=== PATIENT | female | born 1990 | race Caucasian/White ===

== ENCOUNTER 2019-05-02 15:32 | Inpatient (IN) ==
[2019-05-02] MEDS ORDERED: OXYTOCIN 30 UNITS/500 ML BAG IV PRN ×3 (16:58→22:51)
[2019-05-02 17:22] LABS: Hemoglobin 13.3 g/dL (12.0-16.0); Mean Corpuscular Volume 94.2 fL (80-100); Mean Platelet Volume 9.2 fL (7.4-10.4); Platelet Count 282 K/uL (130-400); RDW Coefficient of Variation 13.4 % (11.5-14.5); RDW Standard Deviation 46.4 fL (36.4-46.3); Red Blood Count 4.14 M/uL (4.2-5.4); White Blood Count 10.39 K/uL (4.8-10.8)
[2019-05-02 17:24] LABS: Mean Corpuscular Hgb Conc 34.1 g/dL (32-36)
--- NOTE | 2019-05-02 17:40 | History & Physical Report ---
Date of Service May 02, 2019 Assessment & Plan (1) 40 weeks gestation of : Admit to L&D. IV, labs, EFM/toco. Patient desires epidural. Will plan for that and pitocin, then plan to AROM. Anticipate . History of Present Illness Chief Complaint: Advanced cervical dilation Primary Care Provider: NO PCP 28yo @ 40 2/ with advanced cervical dilation as diagnosed in the office today. + movement, no vaginal bleeding, no leaking of fluid. Irregular ctx. uncomplicated. Allergies Allergy/AdvReac Type Severity Reaction Status Date / Time No Known Allergies Allergy Verified 05/01/19 21:30 Home Medications Home Medications Medication Instructions Recorded Confirmed Type vit-iron fum-folic ac 1 tab PO DAILY 05/02/19 05/02/19 History [ Vitamin] Patient History Social History Preferred Language: Uzbek Remarketing Rep Required: No Beliefs That Will Affect Care: None marital status: Single Current Living Situation: Significant Other Other Information That Helps Us Care for You: No Feels Safe at Home: Yes Safety Concerns: Feels Safe At This Time Smoking Status: Never smoker Hx Alcohol Use: No Hx Substance Use: No Review of Systems All systems reviewed & are unremarkable except as noted in HPI & below Physical Exam Physical Exam: Gen: [id number] CV: RRR L: CTAB Abd: soft, gravid, NTTP Ext: tr edema SVE 5-6/100/0, bulging membranes FHT Cat 1 [place] irreg Results & Data Vital Signs (Past 12 Hours) Vital Signs Temp Pulse Resp BP 05/02/19 17:00 20 05/02/19 16:30 20 05/02/19 16:00 20 05/02/19 15:45 36.9 C 16 05/02/19 15:41 75 111/73
[2019-05-02] MEDS: LACTATED RINGER'S 1,000 ML IV PRN ×2 (17:44→18:42)
[2019-05-02] MEDS ORDERED: ePHEDrine sulfate 50 MG/ML AMP ONE (18:14)
[2019-05-02] MEDS ORDERED: BUPIVACAINE 0.25% 30 ML VIAL ONE (18:14)
[2019-05-02] MEDS ORDERED: fentaNYL citrate 100 MCG/2 ML VIAL ONE (18:14)
[2019-05-02] MEDS ORDERED: fentaNYL 2MCG/ML ROPIV 1.25MG/ML 100 ML BAG EPI ONE (18:15)
[2019-05-02] MEDS ORDERED: fentaNYL 2MCG/ML ROPIV 1.25MG/ML 100 ML BAG EPI PRN (18:35)
[2019-05-02] MEDS ORDERED: ONDANSETRON INJ 2 MG/ML 2 ML VIAL IV PRN (18:35)
[2019-05-02] MEDS ORDERED: NALBUPHINE HCL INJ 10 MG/ML AMP IV PRN (18:35)
[2019-05-02] MEDS ORDERED: DiphenhydrAMINE HCL 50 MG/ML VIAL IV PRN (18:35)
[2019-05-02] MEDS ORDERED: NALOXONE HCL 0.4 MG/1 ML VIAL/CARP IV PRN (18:35)
[2019-05-02] MEDS ORDERED: ePHEDrine sulfate 50 MG/ML AMP IV PRN (18:35)
[2019-05-02] MEDS ORDERED: NALOXONE HCL 1 MG in SODIUM CHLORIDE 0.9% 1000ML 1,000 ML IV PRN (18:35)
--- NOTE | 2019-05-02 18:41 | Anesthesiology Consultation ---
Date of Service May 02, 2019 The patient came to the ER last night with acute chest pain. An EKG and CXR were performed that were normal. Her chest pain suddenly resolved and she was discharged home. Assessment & Plan Chart Review Chart Review: Patient NOT seen in Pre Admission Testing and Acceptable Risk for Labor Epidural Consults Requested none ASA ASA2 Proposed Anesthesia Anesthesia Type: Labor Epidural and CSE Risk / Benefits Reviewed With: PT / POA / Parent / Guardian, Accepts Plan and Informed Consent Obtained History Height/Weight Height: 5 ft 8 in Weight: 86.636 kg Allergies Allergy/AdvReac Type Severity Reaction Status Date / Time No Known Allergies Allergy Verified 05/01/19 21:30 Medications Home Medications Medication Instructions Recorded Confirmed Last Taken vit-iron fum-folic ac 1 tab PO DAILY 05/02/19 05/02/19 Unknown [ Vitamin] Active Medications Generic Name Dose Route Start Last Admin Trade Name Freq PRN Reason Stop Dose Admin Lactated Ringer's 1,000 mls @ 125 mls/hr 05/02/19 16:58 05/02/19 17:44 Lr IV 05/04/19 16:57 999 mls/hr .Q8H PRN Administration L&D Protocol Protocol NPO Date Last Intake of Fluids: 05/02/19 Time Last Intake of Fluids: 18:00 Date Last Intake of Solids: 05/02/19 Time Last Intake of Solids: 11:00 Exercise / Class Metabolic Activity II 4-5 Yardwork/Stairs/Walk up hill Past Family History Family History Other No pertinent family history in first degree relatives Past Anesthesia History No Hx of Anesthesia Complications History of PONV No Hx of PONV Social History Smoking Status: Never smoker Hx Alcohol Use: No Hx Substance Use: No substance use type: does not use Review of Systems no chest pain or sob Physical Exam Vital Signs Last Vital Signs Temp 36.9 C 05/02/19 15:45 Pulse 74 05/02/19 18:37 Resp 20 05/02/19 18:00 BP 111/71 05/02/19 18:21 Pulse Ox 99 05/02/19 18:37 ENMT Mouth: + chipped teeth; no TMJ abnormality Thyromental Distance: > or= 3.5 Finger Breadths Mallampati Class: II Neck normal visual inspection Respiratory normal respiratory effort Auscultation: lungs clear to auscultation bilaterally Cardiovascular Rate/Rhythm: regular rate and regular rhythm Musculoskeletal Spine: normal cervical ROM Neurologic moves all extremities Psychiatric Orientation: alert and oriented x 3 Testing Laboratory Results 05/02/19 17:14
--- NOTE | 2019-05-02 20:12 | Obstetrical Progress Note ---
Date of Service May 02, 2019 Subjective Comfortable with epidural. FHT Cat 1 [place] irreg SVE 7/90/-1 AROM clear fluid Results & Data Vital Signs (Past 12 Hours) Vital Signs Temp Pulse Resp BP Pulse Ox 05/02/19 20:08 71 94/52 L 05/02/19 20:07 74 98 05/02/19 20:02 70 98 05/02/19 20:00 37.0 C 05/02/19 19:57 68 98 05/02/19 19:53 88 107/61 05/02/19 19:52 85 99 05/02/19 19:47 78 98 05/02/19 19:45 18 05/02/19 19:42 75 99 05/02/19 19:37 71 103/56 L 98 05/02/19 19:32 77 98 05/02/19 19:30 20 05/02/19 19:27 71 99 05/02/19 19:22 75 99/56 L 98 05/02/19 19:17 70 98 05/02/19 19:12 72 98 05/02/19 19:07 84 93/54 L 98 05/02/19 19:05 80 101/60 05/02/19 19:03 90 99/57 L 05/02/19 19:02 81 98 05/02/19 19:01 80 104/59 L 05/02/19 19:00 36.8 C 20 05/02/19 18:59 85 101/56 L 05/02/19 18:57 75 96/54 L 98 05/02/19 18:55 81 97/54 L 05/02/19 18:53 90 125/78 05/02/19 18:52 80 98 05/02/19 18:47 76 100 05/02/19 18:42 72 99 05/02/19 18:37 74 99 05/02/19 18:32 79 99 05/02/19 18:30 20 05/02/19 18:27 72 99 05/02/19 18:22 71 99 05/02/19 18:21 74 111/71 05/02/19 18:00 20 05/02/19 17:30 20 05/02/19 17:00 20 05/02/19 16:30 20 05/02/19 16:00 20 05/02/19 15:45 36.9 C 16 05/02/19 15:41 75 111/73
--- NOTE | 2019-05-02 22:41 | Procedure Note ---
Vaginal Delivery Summary Date of Service May 02, 2019 Vaginal Delivery Summary Vaginal Delivery Summary: Pre-delivery diagnoses: 28yo @ 40 2/7, IOL Post-delivery diagnoses: same Procedure: spontaneous vaginal delivery, repair of 1st degree perineal laceration Surgeon: Lora Sanchez DO Complications: none Findings: Viable male . Apgars: 9/9. Weight pending, please see nursery records Estimated blood loss: 300ml Description of delivery: The patient progressed to complete with epidural anesthesia. She then began to push. She spontaneously vaginally delivered a viable male from the cephalic presentation. The head delivered in NICOLE position. Nuchal cord x 1 easily reduced. The anterior shoulder delivered, followed by the posterior shoulder, followed by the body. The baby was placed on mother's abdomen and a spontaneous cry was heard. Delayed cord clamping was employed, and the cord was doubly clamped and cut. Cord blood was obtained. The placenta was delivered spontaneously intact with a 3-vessel cord. The uterus and vagina were swept of clots and debris. IV pitocin was given. The uterus became firm. The cervix, vagina, and perineum were inspected and 1st degree perineal laceration was noted and repaired in standard fashion with 3-0 vicryl in standard fashion. Excellent hemostasis was observed. The mother and baby are recovering in stable and good condition in the room. Sponge, needle and instrument counts were correct x 2. Lora Sanchez DO [facility] [place]
[2019-05-02] MEDS ORDERED: OXYCODONE/ACETAMINOPHEN 5mg/325mg TAB PO PRN (22:51)
[2019-05-02] MEDS ORDERED: BISACODYL 10 MG SUPP PR PRN (22:51)
[2019-05-02] MEDS ORDERED: DIPHTHERIA/TETANUS/PERTUSSIS 0.5 ML SYR/VIAL IM ONE (22:51)
[2019-05-02] MEDS ORDERED: BENZOCAINE 20% AER SPR 82.5 GM CAN EXT PRN (22:51)
[2019-05-02] MEDS ORDERED: HYDROCORTISONE ACETATE 25 MG SUPP PR PRN (22:51)
[2019-05-02] MEDS ORDERED: SUPERCREAM 0.870% 15 GM JAR EXT PRN (22:51)
[2019-05-03] MEDS: IBUPROFEN 600 MG TAB PO PRN ×5 (02:29→23:39)
[2019-05-03 06:41] LABS: Hematocrit (blood only) 36.7 % (37-47); Hemoglobin 12.6 g/dL (12.0-16.0); Mean Corpuscular Hgb Conc 34.3 g/dL (32-36); Mean Corpuscular Volume 95.3 fL (80-100); Platelet Count 272 K/uL (130-400); RDW Coefficient of Variation 13.2 % (11.5-14.5); RDW Standard Deviation 45.8 fL (36.4-46.3); Red Blood Count 3.85 M/uL (4.2-5.4); White Blood Count 15.58 K/uL (4.8-10.8)
--- NOTE | 2019-05-03 06:54 | Obstetrical Progress Note ---
Date of Service May 03, 2019 Assessment & Plan (1) Vaginal delivery: PPD#1 doing well. No concerns. Continue routine care. Anticipate DC home tomorrow. Subjective Ambulation: ambulating normally Voiding: no voiding problems Diet Tolerance:: regular diet Lochia:: Moderate Feeding Type:: breast feeding PPD#1 doing well. No concerns. Physical Exam Constitutional WD/WN, vitals as above no acute distress Respiratory normal respiratory effort Cardiovascular Rate/Rhythm: regular rate and regular rhythm Gastrointestinal (Abdomen) Inspection/Auscultation: abdomen normal to inspection; abdomen not distended Percussion/Palpation: abdomen soft Genitourinary OB Exam Abdomen: + fundal height Fundus: + firm; not tender Results & Data Vital Signs (Past 12 Hours) Vital Signs Temp Pulse Pulse Resp BP BP Pulse Ox 05/03/19 04:05 36.7 C 83 16 109/66 97 05/03/19 01:10 37 C 89 18 107/65 98 05/03/19 00:32 37.1 C 18 121/79 05/03/19 00:17 76 116/71 05/03/19 00:02 75 18 118/68 05/02/19 23:47 85 121/73 05/02/19 23:32 76 18 117/74 05/02/19 23:17 71 18 120/76 05/02/19 23:04 72 18 115/76 05/02/19 22:48 81 20 127/54 L 05/02/19 22:42 85 98 05/02/19 22:37 77 97 05/02/19 22:32 90 99 05/02/19 22:30 36.8 C 86 20 112/65 05/02/19 22:27 92 H 97 05/02/19 22:22 81 119/76 97 05/02/19 22:17 84 98 05/02/19 22:15 20 05/02/19 22:12 84 100 05/02/19 22:07 73 109/69 100 05/02/19 22:02 77 99 05/02/19 22:00 20 05/02/19 21:57 76 100 05/02/19 21:52 80 112/75 99 05/02/19 21:47 71 99 05/02/19 21:42 75 99 05/02/19 21:38 76 127/74 05/02/19 21:37 75 100 05/02/19 21:32 79 100 05/02/19 21:30 20 05/02/19 21:27 71 100 05/02/19 21:22 73 126/82 97 05/02/19 21:17 82 98 05/02/19 21:12 78 97 05/02/19 21:07 81 118/76 98 05/02/19 21:02 76 98 05/02/19 21:00 20 05/02/19 20:57 80 97 05/02/19 20:53 77 111/71 05/02/19 20:52 72 98 05/02/19 20:47 80 98 05/02/19 20:42 78 97 05/02/19 20:37 75 130/68 97 05/02/19 20:32 86 98 05/02/19 20:30 20 05/02/19 20:27 80 98 05/02/19 20:22 74 98/55 L 97 05/02/19 20:17 69 97 05/02/19 20:12 61 99 05/02/19 20:08 71 94/52 L 05/02/19 20:07 74 98 05/02/19 20:02 70 98 05/02/19 20:00 37.0 C 20 05/02/19 19:57 68 98 05/02/19 19:53 88 107/61 05/02/19 19:52 85 99 05/02/19 19:47 78 98 05/02/19 19:45 18 05/02/19 19:42 75 99 05/02/19 19:37 71 103/56 L 98 05/02/19 19:32 77 98 05/02/19 19:30 20 05/02/19 19:27 71 99 05/02/19 19:22 75 99/56 L 98 05/02/19 19:17 70 98 05/02/19 19:12 72 98 05/02/19 19:07 84 93/54 L 98 05/02/19 19:05 80 101/60 05/02/19 19:03 90 99/57 L 05/02/19 19:02 81 98 05/02/19 19:01 80 104/59 L 05/02/19 19:00 36.8 C 20 05/02/19 18:59 85 101/56 L 05/02/19 18:57 75 96/54 L 98 05/02/19 18:55 81 97/54 L
[2019-05-03] MEDS: DOCUSATE SODIUM 100 MG CAP PO SCH (08:50)
[2019-05-03] MEDS: PRENATAL VITAMIN 1 TAB PO SCH (08:50)
[2019-05-03] MEDS: ACETAMINOPHEN 325 MG TAB PO PRN ×2 (08:55→16:06)
--- NOTE | 2019-05-03 09:31 | Anesthesia Procedure Note ---
Date of Service May 03, 2019 Anesthesia Post Epidural Note Vital Signs Vital Signs: Temp Pulse Resp BP Pulse Ox 36.7 C 83 16 109/66 97 05/03/19 04:05 05/03/19 04:05 05/03/19 04:05 05/03/19 04:05 05/03/19 04:05 Notes Mental Status: alert / awake / arousable Nausea / Vomiting: adequately controlled Pain: adequately controlled Airway Patency, RR, SpO2: stable & adequate BP & HR: stable & adequate Hydration State: stable & adequate Neuraxial Anesthesia: was administered and sensory block is resolving Anesthetic Complications: no major complications apparent and Pt Satisfied with anesthetic care Epidural: Removed without complications and With tip intact
[2019-05-03] MEDS ORDERED: BISACODYL 5 MG TABEC PO SCH (20:00)
[2019-05-04] MEDS: DOCUSATE SODIUM 100 MG CAP PO SCH ×2 (04:58→07:33)
[2019-05-04] MEDS: IBUPROFEN 600 MG TAB PO PRN ×2 (05:01→09:32)
--- NOTE | 2019-05-04 07:06 | Obstetrical Progress Note ---
Date of Service May 04, 2019 Assessment & Plan (1) Vaginal delivery: stable, routine care, d/c home, f/u 6 wk pp check, instructions reviewed. Day #:: 2 Subjective Ambulation: ambulating normally Voiding: no voiding problems Diet Tolerance:: regular diet Lochia:: Small Feeding Type:: breast feeding Physical Exam Constitutional WD/WN, vitals as above Respiratory normal respiratory effort, lungs clear to auscultation Cardiovascular Rate/Rhythm: regular rate and regular rhythm Gastrointestinal (Abdomen) Inspection/Auscultation: abdomen normal to inspection Percussion/Palpation: abdomen soft fundus firm 2 cm below umbilicus Musculoskeletal nt calves Psychiatric A+Ox3, euthymic affect Results & Data Vital Signs (Past 12 Hours) Vital Signs Temp Pulse Resp BP 05/03/19 23:15 36.4 C L 58 L 20 114/72 05/03/19 19:40 36.4 C L 59 L 20 128/73
[2019-05-04] MEDS: PRENATAL VITAMIN 1 TAB PO SCH (07:33)
== END 2019-05-04 11:00 | disposition home or self-care (01) | DRG 807 ==
LOC: OPB 15:32 → 4S1 15:35 → 4S2 05-03 01:02

== ENCOUNTER 2020-08-29 08:58 | Observation (INO) ==
[2020-08-29] MEDS ORDERED: SODIUM CHLORIDE 0.9% 500 ML IV SCH (09:45)
[2020-08-29] MEDS ORDERED: ONDANSETRON INJ 2 MG/ML 2 ML VIAL IV STA (09:48)
[2020-08-29] MEDS ORDERED: SODIUM CHLORIDE 0.9% 1000ML 1,000 ML IV ONE (09:48)
[2020-08-29] MEDS ORDERED: PANTOprazole 40 MG in SYRINGE 0 ML IV ONE (09:48)
[2020-08-29 09:51] LABS: Basophils # (auto) 0.02 K/uL (0-0.2); Basophils % (auto) 0.3 %; Eosinophils # (auto) 0.05 K/uL (0-0.5); Eosinophils % (auto) 0.7 %; Hematocrit (blood only) 47.4 % (37-47); Hemoglobin 16.3 g/dL (12.0-16.0); Immature Granulocytes # (auto) 0.02 K/uL (0.00-0.02); Immature Granulocytes % (auto) 0.3 %; Lymphocytes # (auto) 1.65 K/uL (1.2-3.4); Mean Corpuscular Hemoglobin 35.2 pg (25-34); Mean Corpuscular Hgb Conc 34.4 g/dL (32-36); Mean Corpuscular Volume 102.4 fL (80-100); Mean Platelet Volume 10.1 fL (7.4-10.4); Monocytes # (auto) 0.57 K/uL (0.11-0.59); Monocytes % (auto) 8.3 %; Neutrophils # (auto) 4.56 K/uL (1.4-6.5); Neutrophils % (auto) 66.4 %; Platelet Count 399 K/uL (130-400); RDW Coefficient of Variation 13.1 % (11.5-14.5); RDW Standard Deviation 48.9 fL (36.4-46.3); Red Blood Count 4.63 M/uL (4.2-5.4); White Blood Count 6.87 K/uL (4.8-10.8)
[2020-08-29 09:54] LABS: Pregnancy Test, Serum Negative (Negative)
[2020-08-29 09:59] LABS: Alanine Aminotransferase 77 U/L (12-78); Albumin Level 3.5 gm/dl (3.4-5.0); Aspartate Aminotransferase 86 U/L (15-37); BUN Creatinine Ratio 5.1 (10-20); Blood Urea Nitrogen 5 mg/dl (7-18); Calcium 8.9 mg/dl (8.5-10.1); Carbon Dioxide 30 mmol/L (21-32); Chloride 107 mmol/L (98-107); Creatinine Clr Calc Pharmacy 90.8 ml/min; Est GFR (Non-African American) 78.5; Glucose 104 mg/dl (70-99); Lipase 105 U/L (73-393); Sodium 139 mmol/L (136-145)
[2020-08-29 10:00] LABS: Partial Thromboplastin Ratio 0.9; Partial Thromboplastin Time 25.6 Seconds (21.0-31.0); Prothrombin Time 10.3 Seconds (9.0-12.0)
[2020-08-29 10:04] LABS: Albumin Globulin Ratio 0.9 (0.9-2); Alkaline Phosphatase 72 U/L (45-117); Bilirubin,Total 0.5 mg/dl (0.2-1); Total Protein 7.5 gm/dl (6.4-8.2); Troponin I < 0.015 ng/ml (0-0.045)
--- NOTE | 2020-08-29 10:08 | XRay Report ---
XR chest 1V portable CLINICAL HISTORY: Atypical chest pain. COMPARISON STUDY: Chest radiograph May 01, 2019. FINDINGS: Lung volumes are normal. Lungs are clear. There is no pneumothorax or pleural effusion. Car diac size is normal. Mediastinal contours are normal. There is no evidence for pulmonary edema. IMPRESSION: No acute cardiopulmonary findings. ACT 112: Negative or not required by law. Electronically signed by: Darin Smith M.D. 08/29/2020 10:07 AM
--- NOTE | 2020-08-29 10:12 | Emergency Department Note ---
Impression & Plan Acute cholecystitis, Abdominal pain, epigastric ED Provider Note NAME: SAW CORTES AGE: 29 SEX: F : 1990 ARRIVES VIA: Walk-In INFORMANT: Patient, ED PROVIDER(S): Braulio Moralez DO CHIEF COMPLAINT: Epigastric pain HPI: The patient is a 29-year-old female who presented to the emergency department for an evaluation of epigastric pain. The patient presented with pain which began this morning upon awakening. She thinks she awoke approximately 6 AM with epigastric pain. She also notices mid back pain. She is never had a history of pancreatitis or gallstone issues. She does drink alcohol but only intermittently and small amounts of beer. She denies having any fevers or chills. She does describe pain in the epigastric and retrosternal region. She denies having any vaginal discharge. She is had no dysuria or frequency. She denies having any difficulty breathing but states sometimes she has shortness of breath when the pain strikes. She does notice waxing and waning of the pain. She is noticed no change with the pain with food. ROS: See above HPI for pertinent positives & negatives. A total of 10 systems reviewed and were otherwise negative. PAST MEDICAL HISTORY: See Below PAST SURGICAL HISTORY: See Below FAMILY HISTORY: See Below SOCIAL HISTORY: See Below HOME MEDICATIONS: See Below ALLERGIES: See Below VITALS: See Below PHYSICAL EXAMINATION: GENERAL: The patient is awake and alert. She is very anxious appearing appears to be uncomfortable. EYES: The conjunctivae are clear. The pupils are round and reactive. EARS, NOSE, MOUTH AND THROAT: The nose is without any evidence of any deformity. NECK: The neck is nontender and supple. RESPIRATORY: Normal respiratory effort is noted there is no evidence of wheezing rhonchi or rales CARDIOVASCULAR: Regular rate and rhythm noted there no murmurs rubs or gallops normal S1 normal S2. GASTROINTESTINAL: The abdomen is soft and mildly distended. There is significant right upper quadrant tenderness to palpation. BACK: No midline tenderness or or step-off noted range of motion in flexion extension as well as rotation no signs of muscle spasm noted MUSCULOSKELETAL/EXTREMITIES: There is no evidence of gross deformity full range of motion is noted in the hips and shoulders. SKIN: There is no obvious evidence of any rash. There are no petechiae, pallor or cyanosis noted. NEUROLOGIC: Patient is awake alert and oriented x3 strength is symmetric patellar reflexes are 2+ bilaterally MEDICAL DECISION MAKING: The patient is a 29-year-old female who presented to the emergency department for an evaluation of epigastric pain. The patient had reproducible right upper quadrant and epigastric pain on palpation. I did feel her exam was consistent with gallbladder pathology. Laboratory studies did not show significant elevation in white blood cell count or her liver function studies however ultrasound appear to be consistent with dilated gallbladder and gallstones. For this reason I discussed the patient's condition with the on-call general surgical group. They have agreed to evaluate the patient in the emergency department for further management and disposition. The patient was treated with IV fluids IV pain medication and IV antibiotics. She was reevaluated multiple times. I discussed the patient's laboratory and radiographic studies with her. Triage Nursing notes reviewed. Prior medical records reviewed Vital Signs: reviewed and remarkable for no significant abnormalities Differential diagnosis: Etiologies such as appendicitis, diverticulitis, obstruction, inflammatory bowel disease, renal colic, PUD, biliary pathology, pancreatitis, mesenteric ischemia, aortic pathology, infections, genitourinary, UTI, perforated viscus, as well as others were entertained. ER treatment provided: See below Diagnostics interpreted by me: ECG: EKG was obtained in the emergency department. My interpretation is normal sinus rhythm at 62 bpm. There was no ectopy. There is no acute ST segment abnormalities noted. This was compared to a tracing from May 012018. No significant changes were noted. Cardiac Monitoring: An order was placed for continuous cardiac monitoring. The monitor shows a rate of 75 bpm with sinus rhythm. Laboratory studies: As stated above and show below. Imaging studies: See below Consultation(s): 1205: I discussed this case with Harshil Martinez who is on-call for general surgery. They will evaluate the patient in the emergency department. Past Med/Surg History Medical History (Updated 08/29/20 @ 14:49 by Braulio Moralez DO) Dental caries Dental caries Normal delivery contractions Toothache Family History Other No pertinent family history in first degree relatives Social History Smoking Status: Never smoker Second Hand Exposure: No; Do You Dip or Chew Tobacco: No; Tobacco Cessation Education Requested by Patient: No Hx Alcohol Use: No Hx Substance Use: No Preferred Language: Chinese Communication Ability: Effective Wiring Technician Required: No Beliefs That Will Affect Care: None marital status: Single Current Living Situation: Family Other Information That Helps Us Care for You: No Feels Safe at Home: Yes Safety Concerns: Feels Safe At This Time Assistive Devices: None Allergies Allergies Allergy/AdvReac Type Severity Reaction Status Date / Time No Known Allergies Allergy Verified 08/29/20 11:03 Home Meds Home Medications Medication Instructions Recorded Confirmed No Known Home Medications 08/29/20 08/29/20 Results & Data (ED) Vital Signs Vital Signs - 24 hr 08/29/20 08:58 08/29/20 09:07 08/29/20 10:56 Temperature 36.5 C Temperature Source Oral Pulse Rate 76 64 Pulse Rate [Left] 55 L Pulse Rhythm Regular Respiratory Rate 16 16 18 Respiratory Effort / Characteristics Non-Labored Non-Labored Spontaneous Respiratory Depth Normal Normal Blood Pressure 130/83 Blood Pressure [Left Arm] 129/85 Blood Pressure Mean 98 Blood Pressure Mean [Left Arm] 99 Blood Pressure Position Sitting Blood Pressure Position [Left Arm] Pulse Oximetry 100 98 100 Oxygen Delivery Method Room Air Room Air Room Air Sepsis Recent Fever Within 48 Hours No Sepsis New/Unexplained Change in Mental Status N/A Sepsis Action Taken by Nursing No Action Required 08/29/20 12:12 08/29/20 14:09 Temperature Temperature Source Pulse Rate Pulse Rate [Left] 51 L 63 Pulse Rhythm Respiratory Rate 16 18 Respiratory Effort / Characteristics Non-Labored Spontaneous Non-Labored Spontaneous Respiratory Depth Normal Normal Blood Pressure Blood Pressure [Left Arm] 140/82 123/84 Blood Pressure Mean Blood Pressure Mean [Left Arm] 101 97 Blood Pressure Position Blood Pressure Position [Left Arm] Lying Lying Pulse Oximetry 100 96 Oxygen Delivery Method Room Air Room Air Sepsis Recent Fever Within 48 Hours Sepsis New/Unexplained Change in Mental Status Sepsis Action Taken by [facility] Medications Current Medication List: was personally reviewed by me Laboratory Data Attestation: I reviewed the patient's lab results. Result diagrams: 08/29/20 09:15 08/29/20 09:15 Lab Results 08/29/20 08/29/20 08/29/20 Range/Units 09:15 09:15 09:15 WBC 6.87 (4.8-10.8) K/uL RBC 4.63 (4.2-5.4) M/uL Hgb 16.3 H (12.0-16.0) g/dL Hct 47.4 H (37-47) % MCV 102.4 H (80-100) fL MCH 35.2 H (25-34) pg MCHC 34.4 (32-36) g/dL RDW Std Deviation 48.9 H (36.4-46.3) fL RDW Coeff of Robyn 13.1 (11.5-14.5) % Plt Count 399 (130-400) K/uL MPV 10.1 (7.4-10.4) fL Immature Gran % (Auto) 0.3 % Neut % (Auto) 66.4 % Lymph % (Auto) 24.0 % [place] % (Auto) 8.3 % Eos % (Auto) 0.7 % Baso % (Auto) 0.3 % Neut # (Auto) 4.56 (1.4-6.5) K/uL Lymph # (Auto) 1.65 (1.2-3.4) K/uL [place] # (Auto) 0.57 (0.11-0.59) K/uL Eos # (Auto) 0.05 (0-0.5) K/uL Baso # (Auto) 0.02 (0-0.2) K/uL Immature Gran # (Auto) 0.02 (0.00-0.02) K/uL PT 10.3 (9.0-12.0) Seconds INR 1.0 (0.9-1.1) APTT 25.6 (21.0-31.0) Seconds PTT Ratio 0.9 Sodium 139 (136-145) mmol/L Potassium 4.0 (3.5-5.1) mmol/L Chloride 107 (98-107) mmol/L Carbon Dioxide 30 (21-32) mmol/L Anion Gap 2.0 L (3-11) BUN 5 L (7-18) mg/dl Creatinine 0.98 (0.6-1.2) mg/dl Est Cr Clr Drug Dosing 90.8 ml/min Est GFR ( Amer) 91.0 Est GFR (Non-Af Amer) 78.5 BUN/Creatinine Ratio 5.1 L (10-20) Glucose 104 H (70-99) mg/dl Calcium 8.9 (8.5-10.1) mg/dl Total Bilirubin 0.5 (0.2-1) mg/dl AST 86 H (15-37) U/L ALT 77 (12-78) U/L Alkaline Phosphatase 72 (45-117) U/L Troponin I < 0.015 (0-0.045) ng/ml Total Protein 7.5 (6.4-8.2) gm/dl Albumin 3.5 (3.4-5.0) gm/dl Globulin 4.0 (2.5-4.0) gm/dl Albumin/Globulin Ratio 0.9 (0.9-2) Lipase 105 (73-393) U/L HCG, Qual (Negative) COVID-19 Eval Order SARS-CoV-2, RNA, NAAT (NEGATIVE) 08/29/20 08/29/20 08/29/20 Range/Units 09:15 12:50 12:50 WBC (4.8-10.8) K/uL RBC (4.2-5.4) M/uL Hgb (12.0-16.0) g/dL Hct (37-47) % MCV (80-100) fL MCH (25-34) pg MCHC (32-36) g/dL RDW Std Deviation (36.4-46.3) fL RDW Coeff of Robyn (11.5-14.5) % Plt Count (130-400) K/uL MPV (7.4-10.4) fL Immature Gran % (Auto) % Neut % (Auto) % Lymph % (Auto) % [place] % (Auto) % Eos % (Auto) % Baso % (Auto) % Neut # (Auto) (1.4-6.5) K/uL Lymph # (Auto) (1.2-3.4) K/uL [place] # (Auto) (0.11-0.59) K/uL Eos # (Auto) (0-0.5) K/uL Baso # (Auto) (0-0.2) K/uL Immature Gran # (Auto) (0.00-0.02) K/uL PT (9.0-12.0) Seconds INR (0.9-1.1) APTT (21.0-31.0) Seconds PTT Ratio Sodium (136-145) mmol/L Potassium (3.5-5.1) mmol/L Chloride (98-107) mmol/L Carbon Dioxide (21-32) mmol/L Anion Gap (3-11) BUN (7-18) mg/dl Creatinine (0.6-1.2) mg/dl Est Cr Clr Drug Dosing ml/min Est GFR ( Amer) Est GFR (Non-Af Amer) BUN/Creatinine Ratio (10-20) Glucose (70-99) mg/dl Calcium (8.5-10.1) mg/dl Total Bilirubin (0.2-1) mg/dl AST (15-37) U/L ALT (12-78) U/L Alkaline Phosphatase (45-117) U/L Troponin I (0-0.045) ng/ml Total Protein (6.4-8.2) gm/dl Albumin (3.4-5.0) gm/dl Globulin (2.5-4.0) gm/dl Albumin/Globulin Ratio (0.9-2) Lipase (73-393) U/L HCG, Qual Negative (Negative) COVID-19 Eval Order Covid19 [facility] SARS-CoV-2, RNA, NAAT NEGATIVE (NEGATIVE) Administered Medications Fentanyl Citrate (Fentanyl Citrate 100 Mcg/2 Ml Vial) 50 mcg IV Q15M PRN PRN Reason: Pain Stop: 09/12/20 11:03 Last Admin: 08/29/20 11:47 Dose: 50 mcg Documented by: [id number] Admin: 08/29/20 11:07 Dose: 50 mcg Documented by: [id number] Discontinued Medications Hydromorphone HCl (Hydromorphone Inj 1 Mg/Ml Syringe) 1 mg IV NOW STA Stop: 08/29/20 13:12 Last Admin: 08/29/20 13:16 Dose: 1 mg Documented by: [id number] Sodium Chloride (Nss) 500 mls @ 999 mls/hr IV .Q31M ZORAIDA Stop: 08/29/20 10:15 Last Admin: 08/29/20 12:00 Dose: Not Given Documented by: [id number] Sodium Chloride (Nss 1000ml) 1,000 mls @ 999 mls/hr IV .Q1H1M ONE Stop: 08/29/20 10:48 Last Infusion: 08/29/20 12:00 Dose: 0 mls/hr Documented by: [id number] Admin: 08/29/20 10:54 Dose: 999 mls/hr Documented by: [id number] Pantoprazole Sodium 40 mg/ (Syringe) 10 mls @ 5 mls/min IV NOW ONE Stop: 08/29/20 09:49 Last Admin: 08/29/20 10:54 Dose: 5 mls/min Documented by: [id number] Cefoxitin Sodium (Mefoxin) 1,000 mg in 50 mls @ 100 mls/hr IV NOW STA Stop: 08/29/20 11:37 Last Infusion: 08/29/20 12:29 Dose: 0 mls/hr Documented by: [id number] Admin: 08/29/20 11:45 Dose: 100 mls/hr Documented by: [id number] Ondansetron HCl (Ondansetron Inj 2 Mg/Ml 2 Ml Vial) 4 mg IV NOW STA Stop: 08/29/20 09:49 Last Admin: 08/29/20 10:54 Dose: 4 mg Documented by: [id number] Imaging Data Radiologist's Impression: Patient: SAW CORTES Admit Date: 08/29/20 MR#: [id number] Address1: [address] [place] [address] Acct ID:[id number] Address2: Date: 1990 [facility] Zip: [place] [address] Age: 29 Location: ED Sex: F Room/Bed: Att Phy: Diagnosis: CHEST PAIN Vanessa Phy: PCP,NO Service Date: 08/29/20 [facility] Phy: Interpreting Phy: Darin Smith MD Admit Phy: Ordering Phy: Braulio Moralez DO cc: ~ KUB CLINICAL HISTORY: RUQ pain COMPARISON STUDY: None. FINDINGS: The bowel gas pattern is normal. Left pelvic calcification likely reflects a phlebolith. A tubular lucency within the right mid abdomen likely reflects a normal caliber gas filled appendix. Visualized skeletal structures are unremarkable. No renal calculi are identified. IMPRESSION: Unremarkable KUB. ACT 112: Negative or not required by law. Electronically signed by: Darin Smith M.D. 08/29/2020 10:08 AM Dictated: 08/29/20 [facility] Transcribed: 08/29/20 [facility] Patient: SAW CORTES Admit Date: 08/29/20 MR#: [id number] Address1: [address] Acct ID:[id number] Address2: Date: 1990 [facility] Zip: [place] [address] Age: 29 Location: ED Sex: F Room/Bed: Att Phy: Diagnosis: CHEST PAIN Vanessa Phy: PCP,NO Service Date: 08/29/20 [facility] Phy: Interpreting Phy: Graham Ware MD Admit Phy: Ordering Phy: Braulio Moralez DO cc: ~ ULTRASOUND RIGHT UPPER QUADRANT ABDOMEN CLINICAL HISTORY: Right upper quadrant abdominal pain. COMPARISON STUDY: Abdominal radiograph dated 08/29/2020. TECHNIQUE: Real-time, grayscale, and color flow sonography of the right upper quadrant of the abdomen was performed. Images are reviewed in the transverse and longitudinal planes. FINDINGS: Liver: The liver is normal in size and echotexture. There is no intrahepatic biliary ductal dilatation. The main portal vein is patent. Gallbladder: The gallbladder is distended, measuring 13 cm in length. There are shadowing calcified gallstones. The gallbladder wall is top normal in thickness measuring up to 3 mm. No pericholecystic fluid is identified. A sonographic Enriquez's sign is reportedly absent. The common bile duct is dilated, measuring up to 0.9 cm in diameter. Pancreas: Visualized portions of the pancreatic head and body are normal in appearance. Right kidney: Survey images of the right kidney demonstrate normal size and echotexture. There is no hydronephrosis. Ascites: None. IMPRESSION: 1. Cholelithiasis with a distended gallbladder. There is also dilatation of the common bile duct. A sonographic Enriquez's sign is reportedly absent, and findings are equivocal for acute cholecystitis which is not excluded. If there is strong clinical concern for acute cholecystitis a nuclear hepatobiliary scan should be considered for further assessment. 2. There is no intrahepatic biliary ductal dilatation. ACT 112: Negative or not required by law. Electronically signed by: Graham Ware M.D. 08/29/2020 11:00 AM Dictated: 08/29/20 1055 Patient: SAW CORTES Admit Date: 08/29/20 MR#: [id number] Address1: [address] Acct ID:[id number] Address2: Date: 1990 [facility] Zip: [place] [address] Age: 29 Location: ED Sex: F Room/Bed: Att Phy: Diagnosis: CHEST PAIN Vanessa Phy: PCP,NO Service Date: 08/29/20 [facility] Phy: Interpreting Phy: Darin Smith MD Admit Phy: Ordering Phy: Braulio Moralez DO cc: ~ XR chest 1V portable CLINICAL HISTORY: Atypical chest pain. COMPARISON STUDY: Chest radiograph May 01, 2019. FINDINGS: Lung volumes are normal. Lungs are clear. There is no pneumothorax or pleural effusion. Cardiac size is normal. Mediastinal contours are normal. There is no evidence for pulmonary edema. IMPRESSION: No acute cardiopulmonary findings. ACT 112: Negative or not required by law. Electronically signed by: Darin Smith M.D. 08/29/2020 10:07 AM Dictated: 08/29/20 1007 Transcribed: 08/29/20 1007 Blood Pressure Blood Pressure Findings: Normal blood pressure Discharge Plan Visit Data Chief Complaint: Chest Pain Stated Complaint: CHEST PAIN ED Provider: Braulio Moralez Discharge Problem: Acute cholecystitis, Abdominal pain, epigastric Patient Disposition: Being Evaluated by Surgeon Condition: Good Forms Stand Alone Forms: Pazien Prescriptions Prescriptions: No Action No Known Home Medications RF: 0 Referrals Referrals: PCP,NO [Primary Care Provider] -
--- NOTE | 2020-08-29 11:01 | Ultrasound Report ---
ULTRASOUND RIGHT UPPER QUADRANT ABDOMEN CLINICAL HISTORY: Right upper quadrant abdominal pain. COMPARISON STUDY: Abdominal radiograph dated 08/29/2020. TECHNIQUE: Real-time, grayscale, and color flow sonography of the right upper quadrant of the abdomen was performed. Images are reviewed in the transverse and longitudinal planes. FINDINGS: Liver: The liver is normal in size and echotexture. There is no intrahepatic biliary ductal dilatatio n. The main portal vein is patent. Gallbladder: The gallbladder is distended, measuring 13 cm in length. There are shadowing calcified g allstones. The gallbladder wall is top normal in thickness measuring up to 3 mm. No pericholecystic f luid is identified. A sonographic Enriquez's sign is reportedly absent. The common bile duct is dilated , measuring up to 0.9 cm in diameter. Pancreas: Visualized portions of the pancreatic head and body are normal in appearance. Right kidney: Survey images of the right kidney demonstrate normal size and echotexture. There is no hydronephrosis. Ascites: None. IMPRESSION: 1. Cholelithiasis with a distended gallbladder. There is also dilatation of the common bile duct. A s onographic Enriquez's sign is reportedly absent, and findings are equivocal for acute cholecystitis whi ch is not excluded. If there is strong clinical concern for acute cholecystitis a nuclear hepatobilia ry scan should be considered for further assessment. 2. There is no intrahepatic biliary ductal dilatation. ACT 112: Negative or not required by law. Electronically signed by: Graham Ware M.D. 08/29/2020 11:00 AM
[2020-08-29] MEDS: fentaNYL citrate 100 MCG/2 ML VIAL IV PRN ×4 (11:07→17:37)
[2020-08-29] MEDS ORDERED: cefOXitin 1,000 MG/50 ML BAG IV STA (11:08)
--- NOTE | 2020-08-29 12:34 | History & Physical Report ---
Date of Service August 29, 2020 Assessment & Plan (1) Cholecystitis: Admission and Anticipated Discharge Date Admission Date: Cholelithiasis, dilated CBD but labs normal with exception of AST 86. Plan for lap jason. History of Present Illness Primary Care Provider: NO PCP 29 y/o female awoken from sleep at 6 AM with severe epigastric pain. Had pot roast for dinner. No previous symptoms, nausea, bloating or fatty food intolerance. Pain goes thru to her back, some RUQ pain also and nausea. No vomiting. Came to ED when symptoms did not improve. Allergies Allergy/AdvReac Type Severity Reaction Status Date / Time No Known Allergies Allergy Verified 08/29/20 11:03 Home Medications Home Medications Medication Instructions Recorded Confirmed Type No Known Home Medications 08/29/20 08/29/20 History Past Med/Surg History Medical History (Updated 08/29/20 @ 16:09 by Zaheer Sheth MD) Dental caries Dental caries Normal delivery contractions Toothache Family History Other No pertinent family history in first degree relatives Social History Smoking Status: Never smoker Second Hand Exposure: No; Do You Dip or Chew Tobacco: No; Tobacco Cessation Education Requested by Patient: No Hx Alcohol Use: No Hx Substance Use: No Preferred Language: Romansh Communication Ability: Effective Motor Coach Chauffeur Required: No Beliefs That Will Affect Care: None marital status: Single Current Living Situation: Family Other Information That Helps Us Care for You: No Feels Safe at Home: Yes Safety Concerns: Feels Safe At This Time Assistive Devices: None Review of Systems Constitutional: + chills and + sweats; no fever Gastrointestinal: + abdominal pain and + nausea; no bloating and no vomiting Physical Exam Constitutional: WD/WN, vitals as above Respiratory: normal respiratory effort, lungs clear to auscultation Cardiovascular: RRR, no murmur, no edema Gastrointestinal (Abdomen): Inspection/Auscultation: abdomen not distended Percussion/Palpation: + abdomen tender (epigastric and RUQ), + guarding (RUQ) and abdomen soft Results & Data Results & Data ([facility]) Vital Signs (Past 12 Hours) Vital Signs Temp Pulse Pulse Resp BP BP Pulse Ox 08/29/20 12:12 51 L 16 140/82 100 08/29/20 10:56 55 L 18 129/85 100 08/29/20 09:07 64 16 98 08/29/20 08:58 36.5 C 76 16 130/83 100 PG Care Time/CCT Total # of Minutes Spent Total Time Spent with Patient: Total time spent is greater than 50% in coordination of care (as documented) at patient's floor/unit and/or counseling patient: Coding Level of Care Code 69000 Initial Inpt Care Lvl 1 Diagnoses Cholecystitis K81.9
--- NOTE | 2020-08-29 13:06 | History & Physical Report ---
Date of Service August 29, 2020 Assessment & Plan (1) Cholecystitis: Patient with severe biliary colic and likely chronic cholecystitis possibly acute Plan is for laparoscopic cholecystectomy possible cholangiogram Patient and her do understand and wish to proceed Did discuss the possibility of GI evaluation depending on her cholangiogram and postoperative course Including repeat laboratories History of Present Illness Primary Care Provider: NO PCP 29-year-old female who was awakened from sleep with severe epigastric pain and some nausea Now somewhat located to the right upper quadrant and bandlike She underwent ultrasound showing a distended gallbladder with gallstones She complains of persistent right upper quadrant pain Allergies Allergy/AdvReac Type Severity Reaction Status Date / Time No Known Allergies Allergy Verified 08/29/20 11:03 Home Medications Home Medications Medication Instructions Recorded Confirmed Type No Known Home Medications 08/29/20 08/29/20 History Past Med/Surg History Medical History (Updated 08/29/20 @ 12:32 by Zhao William Jr, PA-C) Dental caries Dental caries Normal delivery contractions Toothache Family History Other No pertinent family history in first degree relatives Social History Smoking Status: Never smoker Second Hand Exposure: No; Do You Dip or Chew Tobacco: No; Tobacco Cessation Education Requested by Patient: No Hx Alcohol Use: No Hx Substance Use: No Preferred Language: Kyrgyz Communication Ability: Effective Physician Surgeon Required: No Beliefs That Will Affect Care: None marital status: Single Current Living Situation: Family Other Information That Helps Us Care for You: No Feels Safe at Home: Yes Safety Concerns: Feels Safe At This Time Assistive Devices: None Review of Systems All systems reviewed & are unremarkable except as noted in HPI & below Physical Exam Physical Exam: Patient is in her ER bed is clearly uncomfortable and the abdominal pain Her abdomen is soft but she does have right upper quadrant tenderness to palpation Constitutional: + ill appearing; no acute distress Eyes: + anicteric sclerae Respiratory: normal respiratory effort; no respiratory distress Cardiovascular: Rate/Rhythm: regular rate Gastrointestinal (Abdomen): Inspection/Auscultation: abdomen not distended Skin: no rashes, warm and dry Neurologic: awake Psychiatric: Orientation: alert Results & Data ([facility]) Vital Signs (Past 12 Hours) Vital Signs Temp Pulse Pulse Resp BP BP Pulse Ox 08/29/20 12:12 51 L 16 140/82 100 08/29/20 10:56 55 L 18 129/85 100 08/29/20 09:07 64 16 98 08/29/20 08:58 36.5 C 76 16 130/83 100 I did review her laboratories and her imaging studies
[2020-08-29] MEDS ORDERED: HYDROmorphone INJ 1 MG/ML SYRINGE IV STA (13:11)
[2020-08-29] MEDS ORDERED: ONDANSETRON INJ 2 MG/ML 2 ML VIAL ONE (15:37)
[2020-08-29] MEDS ORDERED: MIDAZOLAM HCL 1 MG/ML 2ML VIAL ONE (15:37)
[2020-08-29] MEDS ORDERED: ROCURONIUM BROMIDE 10 MG/ML 5 ML VIAL IV ONE (15:37)
[2020-08-29] MEDS ORDERED: PROPOFOL IV EMULSION 10 MG/ML 20 ML VIAL IV ONE (15:37)
[2020-08-29] MEDS ORDERED: DEXAMETHASONE SOD INJ 4 MG/ML VIAL ONE (15:37)
[2020-08-29] MEDS ORDERED: fentaNYL citrate 100 MCG/2 ML VIAL ONE ×2 (15:37→16:38)
[2020-08-29] MEDS ORDERED: LIDOCAINE HCL 2% 2 ML VIAL/AMP(20MG/ML) INFIL ONE (15:37)
[2020-08-29] MEDS ORDERED: ACETAMINOPHEN 1000 MG/100 ML IV IV ONE (15:46)
[2020-08-29] MEDS ORDERED: BUPIVACAINE 0.5 % 5 MG/1 ML MPF 30ML VIAL ONE (15:47)
[2020-08-29] MEDS ORDERED: PROMETHAZINE HCL 6.25 MG in SODIUM CHLORIDE 0.9% 50 ML IV PRN (16:09)
[2020-08-29] MEDS ORDERED: ONDANSETRON INJ 2 MG/ML 2 ML VIAL IV PRN ×2 (16:09→18:49)
[2020-08-29] MEDS ORDERED: ePHEDrine sulfate 50 MG/ML AMP IV PRN (16:09)
[2020-08-29] MEDS ORDERED: HYDROmorphone INJ 2 MG/ML SYR/VIAL IV PRN (16:09)
[2020-08-29] MEDS ORDERED: ATROPINE SULFATE 0.1 MG/ML 10ML SYR IV PRN (16:09)
--- NOTE | 2020-08-29 16:09 | Anesthesiology Consultation ---
Date of Service August 29, 2020 Assessment & Plan (1) Encounter for pre-operative examination: Chart Review Chart Review: Acceptable Risk for Surgery and Patient NOT seen in Pre Admission Testing Consults Requested none ASA [id number] Proposed Anesthesia Anesthesia Type: General Risk / Benefits Reviewed With: PT / POA / Parent / Guardian, Accepts Plan and Informed Consent Obtained History Surgery Operation Date: 08/29/20 08:10 Proposed Procedures p Laparoscopic Cholecystectomy, Possible Cholangiogram - Walter Silva MD, FACS Height/Weight Height: 5 ft 7 in Weight: 75.8 kg Allergies Allergy/AdvReac Type Severity Reaction Status Date / Time No Known Allergies Allergy Verified 08/29/20 11:03 Medications Home Medications Medication Instructions Recorded Confirmed Last Taken No Known Home Medications 08/29/20 08/29/20 Unknown Active Medications Generic Name Dose Route Start Last Admin Trade Name Freq PRN Reason Stop Dose Admin Fentanyl Citrate 50 mcg 08/29/20 11:04 08/29/20 11:47 Fentanyl Citrate 100 Mcg/2 Ml Vial IV 09/12/20 11:03 50 mcg Q15M PRN Administration Pain NPO Date Last Intake of Fluids: 08/28/20 Time Last Intake of Fluids: 08:00 Date Last Intake of Solids: 08/28/20 Time Last Intake of Solids: 08:00 Past Medical History Medical History (Updated 08/29/20 @ 16:09 by Zaheer Sheth MD) Dental caries Dental caries Normal delivery contractions Toothache Exercise / Class Metabolic Activity II 4-5 Yardwork/Stairs/Walk up hill Past Family History Family History Other No pertinent family history in first degree relatives Past Anesthesia History No Hx of Anesthesia Complications and No Family Hx of Anesthesia Complications History of PONV No Hx of PONV and No Hx of Motion Sickness Social History Smoking Status: Never smoker Do You Dip or Chew Tobacco: No Hx Alcohol Use: No Hx Substance Use: No substance use type: does not use Physical Exam Vital Signs Last Vital Signs Temp 36.5 C 08/29/20 15:45 Pulse 61 08/29/20 15:45 Resp 18 08/29/20 15:45 BP 146/94 H 08/29/20 15:45 Pulse Ox 100 08/29/20 15:45 ENMT Mouth: no dentition abnormality Thyromental Distance: > or= 3.5 Finger Breadths Mallampati Class: II Neck normal visual inspection Respiratory normal respiratory effort Auscultation: lungs clear to auscultation bilaterally Cardiovascular Rate/Rhythm: regular rate and regular rhythm Psychiatric Orientation: alert Testing Laboratory Results 08/29/20 09:15 08/29/20 09:15 PT 10.3 Seconds (9.0-12.0) 08/29/20 09:15 INR 1.0 (0.9-1.1) 08/29/20 09:15 APTT 25.6 Seconds (21.0-31.0) 08/29/20 09:15
--- NOTE | 2020-08-29 16:46 | Electrocardiogram Report ---
Test Reason : Blood Pressure : / mmHG Vent. Rate : 062 BPM Atrial Rate : 062 BPM P-R Int : 114 ms QRS Dur : 090 ms QT Int : 460 ms P-R-T Axes : 042 055 063 degrees QTc Int : 466 ms Normal sinus rhythm Normal ECG When compared with ECG of 01-MAY-2019 20:56, No significant change was found Confirmed by Reid Johnston ([id number]) on 08/29/2020 4:46:03 PM Referred By: REFERRED SELF Confirmed By:Anthony Johnston
[2020-08-29] MEDS ORDERED: ACETAMINOPHEN 1,000 MG/100 ML VIAL IV ONE (17:09)
--- NOTE | 2020-08-29 17:09 | Post Operative Brief Note ---
PG Immediate Post Op with CF Date of Surgery August 29, 2020 Pre & Post Diagnosis Operation Date: 08/29/20 08:10 Pre-Op Diagnosis: Cholecystitis Post-Op Diagnosis: Cholecystitis I identified the patient and participated in the time-out.: Yes Procedure Operation Date: 08/29/20 08:10 Actual Procedures p Laparoscopic Cholecystectomy(Not Applicable) - Walter Silva MD, FACS Surgeon Walter Silva MD, FACS Community Health Agent Pranav William Estimated Blood Loss 10 Findings Consistent with Post-Op Diagnosis Specimens Specimen Description: Permanent A. Gallbladder and Contents
--- NOTE | 2020-08-29 17:23 | Operative Report (OR) ---
DATE OF OPERATION: 08/29/2020 NAME OF OPERATION: Laparoscopic cholecystectomy. PREOPERATIVE DIAGNOSIS: Cholecystitis. POSTOPERATIVE DIAGNOSIS: Cholecystitis with acute and chronic cholecystitis. STAFF SURGEON: Walter Silva MD. BUSINESS OPERATIONS COORDINATOR: Zhao William PA-C. ANESTHESIA: General. DESCRIPTION OF PROCEDURE: The patient was brought in the operating room and placed on the operating table in supine position. Her abdomen was prepped and draped in usual fashion. My assistant restaurant general manager helped with prepping, draping, removal of the gallbladder and closure of the wounds. 0.5% plain Marcaine was used to anesthetize all incisions. Incision was made just above the umbilicus, carrying dissection down through significant adipose tissue to the fascia, placing a Veress needle, producing pneumoperitoneum. An 11 mm port was placed at this level and under visualization, three 5 mm ports were placed, 1 cephalad and 2 laterally. Gallbladder was very distended and inflamed. It was aspirated of bile and found to be hydrops. Dissection was carried out the rob hepatis identifying adhesions from chronic disease. The cystic duct was identified. It was very short. There was a stone obstructing the duct. It was clipped and transected. The cystic artery was identified, clipped and transected, and the gallbladder dissected away from the liver bed in the usual fashion. There was significant edema in the posterior wall consistent with acute cholecystitis. Gallbladder was placed in an Endobag. After appropriate irrigation and hemostasis, the Endobag was removed through the umbilical site. I did have to enlarge the fascial defect because of the size of the stones in the gallbladder. At this point, the fascia at the umbilicus closed using interrupted 0 PDS suture, subcutaneous tissue reapproximated using 2-0 plain suture and then the skin reapproximated using subcuticular 4-0 Monocryl with Dermabond. The patient was transferred to recovery room in stable condition. I attest to the content of the Intraoperative Record and any orders documented therein. Any exception s are noted below.
--- NOTE | 2020-08-29 18:12 | Anesthesiology Progress Note ---
Date of Service August 29, 2020 Anesthesia Post Procedure Vital Signs Vital Signs: Temp Pulse Pulse Pulse Resp BP BP 08/29/20 18:00 54 L 14 145/91 H 08/29/20 17:50 36.4 C L 59 L 14 136/86 08/29/20 17:40 63 14 135/84 08/29/20 17:30 68 14 133/87 08/29/20 17:20 36.0 C L 97 H 12 138/89 08/29/20 15:45 36.5 C 61 18 146/94 H 08/29/20 15:30 60 16 116/82 08/29/20 14:09 63 18 123/84 08/29/20 12:12 51 L 16 140/82 08/29/20 10:56 55 L 18 129/85 08/29/20 09:07 64 16 08/29/20 08:58 36.5 C 76 16 130/83 Pulse Ox 08/29/20 18:00 100 08/29/20 17:50 100 08/29/20 17:40 100 08/29/20 17:30 100 08/29/20 17:20 100 08/29/20 15:45 100 08/29/20 15:30 99 08/29/20 14:09 96 08/29/20 12:12 100 08/29/20 10:56 100 08/29/20 09:07 98 08/29/20 08:58 100 Pain Intensity Abdomen: Pain Intensity: 5 Transfer of Care Handoff Completed per policy Notes Mental Status: alert / awake / arousable Patient Amnestic to Procedure: Yes Nausea / Vomiting: adequately controlled Pain: adequately controlled Airway Patency, RR, SpO2: stable & adequate BP & HR: stable & adequate Hydration State: stable & adequate Anesthetic Complications: no major complications apparent
[2020-08-29] MEDS ORDERED: HYDROmorphone INJ 0.5 MG/0.5 ML SYR IV PRN (18:49)
[2020-08-29] MEDS ORDERED: HYDROmorphone INJ 1 MG/ML SYRINGE IV PRN (18:49)
[2020-08-29] MEDS ORDERED: SODIUM CHLORIDE 0.9% 1000ML 1,000 ML IV SCH (18:49)
[2020-08-29] MEDS ORDERED: HYDROCODONE/ACETAMOPHEN 5/325MG TAB PO PRN (18:49)
[2020-08-29] MEDS ORDERED: PROMETHAZINE HCL 25 MG in SODIUM CHLORIDE 0.9% 50 ML IV PRN (18:49)
[2020-08-29] MEDS ORDERED: PROMETHAZINE HCL 12.5 MG in SODIUM CHLORIDE 0.9% 50 ML IV PRN (18:49)
[2020-08-29] MEDS ORDERED: ACETAMINOPHEN 325 MG TAB PO PRN (18:49)
[2020-08-29] MEDS: HYDROCODONE/ACETAMOPHEN 5/325MG TAB PO PRN (20:15)
[2020-08-30] MEDS: HYDROCODONE/ACETAMOPHEN 5/325MG TAB PO PRN ×3 (01:33→10:22)
[2020-08-30 06:21] LABS: Hematocrit (blood only) 43.9 % (37-47); Hemoglobin 15.3 g/dL (12.0-16.0); Immature Granulocytes # (auto) 0.03 K/uL (0.00-0.02); Immature Granulocytes % (auto) 0.2 %; Lymphocytes # (auto) 0.71 K/uL (1.2-3.4); Lymphocytes % (auto) 4.8 %; Mean Corpuscular Hemoglobin 35.8 pg (25-34); Mean Corpuscular Hgb Conc 34.9 g/dL (32-36); Mean Corpuscular Volume 102.8 fL (80-100); Mean Platelet Volume 9.7 fL (7.4-10.4); Monocytes % (auto) 5.4 %; Neutrophils % (auto) 89.6 %; Platelet Count 361 K/uL (130-400); RDW Standard Deviation 48.7 fL (36.4-46.3); Red Blood Count 4.27 M/uL (4.2-5.4); White Blood Count 14.84 K/uL (4.8-10.8)
[2020-08-30 06:57] LABS: Albumin Globulin Ratio 0.8 (0.9-2); Bilirubin Direct 0.3 mg/dl (0-0.2); Bilirubin,Total 0.8 mg/dl (0.2-1); Calcium 8.9 mg/dl (8.5-10.1); Creatinine Clr Calc Pharmacy 94.6 ml/min; Est GFR (African American) 95.7; Est GFR (Non-African American) 82.6; Globulin 3.7 gm/dl (2.5-4.0); Phosphorus 3.3 mg/dl (2.5-4.9); Total Protein 6.7 gm/dl (6.4-8.2)
--- NOTE | 2020-08-30 16:51 | Anesthesiology Progress Note ---
Date of Service August 30, 2020 late entry; pt seen this am at 0815 Anesthesia Post Procedure Vital Signs Vital Signs: Temp Pulse Pulse Resp BP BP Pulse Ox 08/30/20 09:32 36.8 C 60 18 128/77 98 08/30/20 09:31 36.8 C 76 60 16 123/66 133/88 97 08/30/20 02:50 36.8 C 60 16 123/66 97 08/29/20 23:05 36.6 C 64 16 123/81 96 08/29/20 21:51 37.1 C 76 16 133/88 97 08/29/20 20:53 36.9 C 64 14 120/79 97 08/29/20 19:59 36.9 C 57 L 15 130/84 97 08/29/20 19:25 36.9 C 56 L 14 145/87 H 97 08/29/20 18:30 54 L 14 126/86 100 08/29/20 18:15 54 L 14 139/86 100 08/29/20 18:00 54 L 14 145/91 H 100 08/29/20 17:50 36.4 C L 59 L 14 136/86 100 08/29/20 17:40 63 14 135/84 100 08/29/20 17:30 68 14 133/87 100 08/29/20 17:20 36.0 C L 97 H 12 138/89 100 Pain Intensity Abdomen: Pain Intensity: 5 Notes Mental Status: alert / awake / arousable and participated in evaluation Nausea / Vomiting: adequately controlled Pain: adequately controlled Airway Patency, RR, SpO2: stable & adequate BP & HR: stable & adequate Hydration State: stable & adequate Anesthetic Complications: no major complications apparent and Pt Satisfied with anesthetic care
--- NOTE | 2020-08-31 13:34 | Discharge Summary (DS) ---
PRINCIPAL DIAGNOSIS: Acute cholecystitis. PROCEDURES: The patient underwent a laparoscopic cholecystectomy. HISTORY OF PRESENT ILLNESS AND HOSPITAL COURSE: The patient is a 29-year-old female admitted through the Emergency Room with acute abdominal pain, diagnosed with acute cholecystitis. Taken to the operating room where she underwent laparoscopic cholecystectomy showing relatively severe acute cholecystitis. The patient has done well overnight and feels stable for discharge home today to be followed in the surgical clinic within 1-2 weeks.
== END 2020-08-30 11:38 | disposition home or self-care (01) ==
LOC: ED 08:58 → OR 15:30 → 3W 15:30